=== PATIENT | male | born 2000 | race Two or more races ===

== ENCOUNTER → 2024-04-01 | Outpatient (CLI) | payer MEDICAID, SELFPAY ==
--- NOTE | 2024-04-01 | XR_ITS ---
Examination: Knee, right , 3 views Technique: Knee AP, lateral, oblique 3 views Date and time of exam: April 01, 2024 1156 hours INDICATIONS: Right knee pain beginning 2 weeks ago. FINDINGS: Adequate bone density. No fracture or dislocation No arthritic change No ossified joint bodies IMPRESSION: No fracture or arthritic change
== END | disposition home or self-care (01) ==
PROVIDERS: Referring Provider Nurse Practitioner Family; Visit Provider Nurse Practitioner Family
DX: M25.561 Pain in right knee (principal)
CPT/HCPCS: 73562